=== PATIENT | female | born 1970 | race Caucasian/White ===

== ENCOUNTER 2016-08-08 17:53 | Emergency (ER) | payer OTHER ==
[~2016-08-08 17:53] MED LIST: ALBUTEROL SULF8.5 GM IH; BABY ASPIRIN81 MG; DYAZIDE 37.5/251 CAP; KEFLEX500 MG PO; LIPITOR40 MG PO; LISINOPRIL10 MG PO; SKELAXIN800 M3 PO; VYTORIN 10/10 T1 TAB; ZITHROMAX250MG Z-PAK PO; ZOFRAN ODT4 MG PO
[2016-08-08 19:10] LABS: URINE BILIRUBIN SMALL (NEG); URINE BLOOD LARGE (NEG); URINE GLUCOSE (UA) NEGATIVE (NEG); URINE KETONE LARGE (NEG); URINE LEUKOCYTE ESTERASE POSITIVE (NEG); URINE NITRITE NEGATIVE (NEG); URINE PROTEIN MODERATE (NEG); URINE SPECIFIC GRAVITY 1.025 (1.003-1.030)
[2016-08-08 19:11] LABS: URINE APPEARANCE BLOODY; URINE COLOR RED
[2016-08-08 19:17] LABS: URINE BACTERIA 1+; URINE MUCUS 1+; URINE RBC FULL FIELD /[HPF] (0-5)
[2016-08-08] MEDS ORDERED: PROMETHAZINE HC25 M3 PO (19:59)
== END 2016-08-08 20:04 ==
LOC: EDMED 17:53
PROVIDERS: Emergency Medicine
DX: G43.909 Migraine, unspecified, not intractable, without status migrainosus (principal); I10 Essential (primary) hypertension; Z79.899 Other long term (current) drug therapy
CPT/HCPCS: J0780; J1200; J1885; J7030